=== PATIENT | female | born 1990 | race Native Hawaiian/Other Pacific Islander ===

== ENCOUNTER 2017-09-29 16:09 | Emergency (ER) | payer SELFPAY ==
[2017-09-29 16:43] VITALS: BP 135/66
[2017-09-29] MEDS ORDERED: DELTASONE PO ONE (20:11)
[2017-09-29] MEDS ORDERED: PROVENTIL IH ONE (20:11)
[2017-09-29] MEDS ORDERED: MOTRIN PO ONE (20:11)
[2017-09-29] MEDS ORDERED: TYLENOL #3 PO ONE (20:11)
[2017-09-29] MEDS ORDERED: ZOFRAN ODT PO ONE (20:13)
--- NOTE | 2017-09-29 21:12 | Emergency Department Report ---
Upper Respiratory HPI - HPI Chief Complaint: Upper Respiratory Infection Stated Complaint: CHEST PAIN/SOB/HEADACHE Time Seen by Provider: 09/29/17 20:11 Duration: 5 Days URI Symptoms: Rhinorrhea: Yes, Sore Throat: Yes, Ear Pain: Yes, Cough: Yes, Shortness of Breath: Yes, Sick Contacts: Yes, Unable to Take Fluids: No, Urine Output Abnormal: No, Listless Behavior: No Other History: Patient diagnosis of bronchitis on yesterday treated with amoxicillin and when necessary albuterol inhaler MAXIMUM TEMPERATURE is 101F,. Patient is tolerating by mouth intake without nausea vomiting at this time - Home Meds and Allergies Home Medications: Previous Rx's Medication Instructions Recorded Last Taken Type Azithromycin [Zithromax TAB] 250 mg PO QDAY #6 tablet 09/29/17 Unknown Rx Codeine Phosphate/Guaifenesin 5 ml PO TID PRN 10 Days #120 ml 09/29/17 Unknown Rx [Guaifenesin-Codeine Syrup] predniSONE [Deltasone] 40 mg PO QDAY 5 Days #10 tab 09/29/17 Unknown Rx Allergies/Adverse Reactions: Allergies Allergy/AdvReac Type Severity Reaction Status Date / Time No Known Allergies Allergy Unverified 09/29/17 16:43 ED Review of Systems ROS: Stated complaint: CHEST PAIN/SOB/HEADACHE Other details as noted in HPI Constitutional: chills, fever Eyes: denies: eye pain, eye discharge, vision change ENT: ear pain, throat pain, congestion Respiratory: cough, shortness of breath, wheezing Cardiovascular: chest pain. denies: palpitations Endocrine: no symptoms reported Gastrointestinal: nausea, vomiting. denies: abdominal pain, diarrhea, constipation, hematemesis, hematochezia Genitourinary: denies: urgency, dysuria, discharge Musculoskeletal: denies: back pain, joint swelling, arthralgia Skin: denies: rash, lesions Neurological: denies: headache, weakness, paresthesias Psychiatric: denies: anxiety, depression Hematological/Lymphatic: denies: easy bleeding, easy bruising ED Past Medical Hx - Past Medical History Previous Medical History?: No - Surgical History Past Surgical History?: No - Social History Smoking Status: Never Smoker Substance Use Type: None - Medications Home Medications: Home Medications Medication Instructions Recorded Confirmed Last Taken Type Azithromycin [Zithromax TAB] 250 mg PO QDAY #6 tablet 09/29/17 Unknown Rx Codeine Phosphate/Guaifenesin 5 ml PO TID PRN 10 Days #120 ml 09/29/17 Unknown Rx [Guaifenesin-Codeine Syrup] predniSONE [Deltasone] 40 mg PO QDAY 5 Days #10 tab 09/29/17 Unknown Rx ED Bronchiolitis Physical Exam - Exam General: Vital signs noted. No distress. Alert and acting appropriately. HEENT: Yes Pharyngeal Erythema, Yes Rhinorrhea, No Conjuctival Injection, No Dry Mucous Membranes Ear: Both TM Erythema, Neither TM Bulge, Neither EAC Discharge Neck: Yes Adenopathy, No Rigidity Lungs: Yes Good Air Exchange, Yes Wheezes, Yes Cough, No Clear Lung Sounds, No Stridor, No Nasal Flaring, No Retractions, No Use of Accessory Muscles Heart: Yes Regular, No Murmur Abdomen: Yes Normal Bowel Sounds, No Tenderness, No Peritoneal Signs Skin: No Rash, No Eczema Neurologic: Alert and oriented, no deficits. Musculoskeletal: Unremarkable. ED Bronchiolitis Tests - Testing Testing: CXR: Normal/Negative Treatments - Treaments Treatment: Improved Albuterol ED Physical Exam - General Limitations: No Limitations General appearance: alert, in no apparent distress - Head Head exam: Present: atraumatic, normocephalic - Eye Eye exam: Present: normal appearance, PERRL, EOMI Pupils: Present: normal accommodation - Expanded ENT Exam Expanded TM/Canal exam: Erythema: Right TM, Left TM Mouth exam: Present: tongue normal. Absent: trismus, tongue elevation Throat exam: Positive: tonsillar erythema, tonsillomegaly. Negative: tonsillar exudate, R peritonsillar mass, L peritonsillar mass - Neck Neck exam: Present: normal inspection, full ROM. Absent: tenderness, lymphadenopathy, thyromegaly - Respiratory Respiratory exam: Present: wheezes, chest wall tenderness. Absent: respiratory distress, stridor, accessory muscle use, decreased breath sounds, prolonged expiratory - Expanded Respiratory Exam Expanded Location: Wheezes: Right, Left, Upper - Cardiovascular Cardiovascular Exam: Present: regular rate, normal rhythm, normal heart sounds. Absent: systolic murmur, diastolic murmur, rubs, gallop - GI/Abdominal GI/Abdominal exam: Present: soft, normal bowel sounds. Absent: distended, tenderness, guarding, rebound, rigid, organomegaly, mass, bruit, pulsatile mass , hernia - Extremities Exam Extremities exam: Present: normal inspection, full ROM, normal capillary refill. Absent: tenderness - Back Exam Back exam: Present: normal inspection, full ROM. Absent: tenderness, CVA tenderness (R), CVA tenderness (L), muscle spasm, paraspinal tenderness, vertebral tenderness - Neurological Exam Neurological exam: Present: alert, oriented X3, CN II-XII intact, normal gait, reflexes normal - Psychiatric Psychiatric exam: Present: normal affect, normal mood - Skin Skin exam: Present: warm, dry, intact, normal color. Absent: rash ED Course Vital Signs 09/29/17 16:39 Temperature 100.6 F H Pulse Rate 104 H Respiratory 16 Rate Blood Pressure 135/66 O2 Sat by Pulse 94 Oximetry ED Medical Decision Making - Radiology Data Radiology results: image reviewed - Medical Decision Making Symptoms are improved with nebulizer patient ambulatory and in ED from room to the ED and back to room without increase shortness of breath or pain decrease to 1/10 patient denies chest pain no dizziness or lightheadedness no nausea vomiting no back pain chest x-ray noted consistent with bronchitis attempted IM Rocephin 1 g as she has had symptoms with productive cough for 1 month, however patient refused stating symptoms are improving we'll treat with his Z- Gerard five-day R program when necessary pain and fever continue albuterol inhaler and prednisone by mouth 5 days patient will follow with PCP in 2-3 days patient verbalized understanding and agreement was signed will be DC'd home in stable condition at this time Critical care attestation.: If time is entered above; I have spent that time in minutes in the direct care of this critically ill patient, excluding procedure time. ED Disposition Clinical Impression: Bronchitis Disposition: DC-01 TO HOME OR SELFCARE Is pt being admited?: No Does the pt Need Aspirin: No Condition: Good Instructions: Acute Bronchitis (ED) Prescriptions: Azithromycin [Zithromax TAB] 250 mg PO QDAY #6 tablet Codeine Phosphate/Guaifenesin [Guaifenesin-Codeine Syrup] 5 ml PO TID PRN 10 Days #120 ml PRN Reason: Cough predniSONE [Deltasone] 40 mg PO QDAY 5 Days #10 tab Referrals: PRIMARY CARE, [Primary Care Provider] - 3-5 Days Forms: Work/School Release Form(ED) Time of Disposition: 21:22
--- NOTE | 2017-09-29 21:18 | XRay Report ---
FINAL REPORT PROCEDURE: XR CHEST ROUTINE 2V TECHNIQUE: PA and lateral chest radiographs were obtained. CPT 72296 HISTORY: cough wheezing COMPARISON: No prior studies are available for comparison. FINDINGS: Heart: Normal. Mediastinum/Vessels: Normal. Lungs/Pleural space: Infiltrates are noted in the right middle lobe and right lower lobe. Left lung and bilateral pleural spaces are clear.. Bony thorax: No acute osseous abnormality. Other: IMPRESSION: Infiltrates right middle and lower lobes..
== END 2017-09-29 21:20 | disposition home or self-care (01) ==
LOC: ED 16:09
DX: J40 Bronchitis, not specified as acute or chronic (principal)
CPT/HCPCS: 71046; 93005; 93010; 94640; 99283; J7512; Q0162

== ENCOUNTER 2019-01-28 07:19 | Emergency (ER) | payer SELFPAY ==
[2019-01-28] MEDS ORDERED: SODIUM CHLORIDE 0.9% 1000 ML 1,000 ML IV ONE (08:16)
[2019-01-28] MEDS ORDERED: ONDANSETRON 4 MG/2 ML INJ IV ONE (08:16)
--- NOTE | 2019-01-28 08:21 | Emergency Department Report ---
HPI - General Chief Complaint: Nausea/Vomiting/Diarrhea Time Seen by Provider: 01/28/19 08:10 - HPI HPI: Room 37 The patient is a 28-year-old female presenting with a chief complaint of nausea vomiting. Patient states for the past 2 days she's had nausea vomiting and lightheadedness. Patient states today she is also had some abdominal pain as been intermittent and sharp in nature. The patient states she had a tubal ligation in 2011 but her LMP was October 2018. The patient states is very unusual for her cycle to be irregular. Patient denies vaginal bleeding of any type. Patient denies dysuria or hematuria. Patient denies breast tenderness or fever. Patient currently has her pain score of 8/10 ED Past Medical Hx - Past Medical History Previous Medical History?: Yes Hx Asthma: Yes Additional medical history: Hyperthyroidism - Surgical History Past Surgical History?: Yes Additional Surgical History: Tubaligation 2011 - Family History Family history: no significant - Social History Smoking Status: Never Smoker Substance Use Type: None (denies illicit drug use), Other - Medications Home Medications: Home Medications Medication Instructions Recorded Confirmed Last Taken Type Azithromycin [Zithromax TAB] 250 mg PO QDAY #6 tablet 09/29/17 Unknown Rx Codeine Phosphate/Guaifenesin 5 ml PO TID PRN 10 Days #120 ml 09/29/17 Unknown Rx [Guaifenesin-Codeine Syrup] predniSONE [Deltasone] 40 mg PO QDAY 5 Days #10 tab 09/29/17 Unknown Rx Ondansetron (Nf) [Zofran TAB] 8 mg PO Q8HR PRN #20 tablet 01/28/19 Unknown Rx ED Review of Systems ROS: Stated complaint: vomiting/dizziness Other details as noted in HPI Constitutional: denies: fever Eyes: denies: eye pain ENT: denies: throat pain Respiratory: no symptoms reported Cardiovascular: denies: chest pain Endocrine: no symptoms reported Gastrointestinal: abdominal pain, nausea, vomiting Genitourinary: abnormal menses. denies: dysuria, hematuria Musculoskeletal: denies: back pain Neurological: denies: headache Physical Exam - Physical Exam Vital Signs: Vital Signs 01/28/19 07:22 Temperature 97.7 F Pulse Rate 75 Respiratory 18 Rate Blood Pressure 120/72 O2 Sat by Pulse 96 Oximetry Physical Exam: GENERAL: The patient is well-developed well-nourished female lying on stretcher not appearing to be in acute distress. [] HEENT: Normocephalic. Atraumatic. Extraocular motions are intact. Patient has moist mucous membranes. NECK: Supple. Trachea midline CHEST/LUNGS: Clear to auscultation. There is no respiratory distress noted. HEART/CARDIOVASCULAR: Regular. There is no tachycardia. There is no gallop rub or murmur. ABDOMEN: Abdomen is soft, with mild superpubic tenderness to palpation. There is no rebound or guarding. Patient has normal bowel sounds. There is no abdominal distention. SKIN: There is no rash. There is no edema. There is no diaphoresis. NEURO: The patient is awake, alert, and oriented. The patient is cooperative. The patient has normal speech and gait. MUSCULOSKELETAL: There is no evidence of acute injury. ED Course Vital Signs 01/28/19 07:22 Temperature 97.7 F Pulse Rate 75 Respiratory 18 Rate Blood Pressure 120/72 O2 Sat by Pulse 96 Oximetry - Reevaluation(s) Reevaluation #1: 01/28/19 09:47 Patient tolerating po ED Medical Decision Making - Lab Data Result diagrams: 01/28/19 08:30 01/28/19 08:30 Laboratory Tests 01/28/19 01/28/19 01/28/19 08:30 08:30 08:30 WBC 7.8 RBC 4.63 Hgb 13.4 Hct 40.1 MCV 87 MCH 29 MCHC 33 RDW 13.4 Plt Count 229 Lymph % (Auto) 22.6 [place] % (Auto) 6.6 Eos % (Auto) 2.1 Baso % (Auto) 0.7 Lymph # 1.8 [place] # 0.5 Eos # 0.2 Baso # 0.1 Seg Neutrophils % 68.0 Seg Neutrophils # 5.3 Sodium 139 Potassium 4.2 Chloride 102.6 Carbon Dioxide 22 Anion Gap 19 BUN 21 H Creatinine 0.5 L Estimated GFR > 60 BUN/Creatinine Ratio 42 Glucose 100 Calcium 9.1 Total Bilirubin 0.20 AST 15 ALT 19 Alkaline Phosphatase 86 Total Protein 7.7 Albumin 4.3 Albumin/Globulin Ratio 1.3 Lipase 22 HCG, Quant < 2 Urine Color Urine Turbidity Urine pH Ur Specific [place] Urine Protein Urine Glucose (UA) Urine Ketones Urine Blood Urine Nitrite Urine Bilirubin Urine Urobilinogen Ur Leukocyte Esterase Urine WBC (Auto) Urine RBC (Auto) U Epithel Cells (Auto) Urine Mucus 01/28/19 Unknown WBC RBC Hgb Hct MCV MCH MCHC RDW Plt Count Lymph % (Auto) [place] % (Auto) Eos % (Auto) Baso % (Auto) Lymph # [place] # Eos # Baso # Seg Neutrophils % Seg Neutrophils # Sodium Potassium Chloride Carbon Dioxide Anion Gap BUN Creatinine Estimated GFR BUN/Creatinine Ratio Glucose Calcium Total Bilirubin AST ALT Alkaline Phosphatase Total Protein Albumin Albumin/Globulin Ratio Lipase HCG, Quant Urine Color Yellow Urine Turbidity Clear Urine pH 6.0 Ur Specific [place] 1.024 Urine Protein <15 mg/dl Urine Glucose (UA) Neg Urine Ketones Neg Urine Blood Mod Urine Nitrite Neg Urine Bilirubin Neg Urine Urobilinogen < 2.0 Ur Leukocyte Esterase Neg Urine WBC (Auto) 1.0 Urine RBC (Auto) 4.0 U Epithel Cells (Auto) 1.0 Urine Mucus Few - Differential Diagnosis UTI, gastroenteritis, ectopic , Critical care attestation.: If time is entered above; I have spent that time in minutes in the direct care of this critically ill patient, excluding procedure time. ED Disposition Clinical Impression: Nausea, Suprapubic pain Disposition: DC-01 TO HOME OR SELFCARE Is pt being admited?: No Does the pt Need Aspirin: No Condition: Stable Instructions: Acute Nausea and Vomiting (ED) Prescriptions: Ondansetron (Nf) [Zofran TAB] 8 mg PO Q8HR PRN #20 tablet PRN Reason: Nausea Referrals: [facility] [Outside] - 3-5 Days Time of Disposition: 09:47
[2019-01-28 08:44] LABS: Basophils # (Auto) 0.1 K/mm3 (0.0-0.1); Basophils % (Auto) 0.7 % (0.0-1.8); Eosinophils # (Auto) 0.2 K/mm3 (0.0-0.4); Eosinophils % (Auto) 2.1 % (0.0-4.3); Hematocrit 40.1 % (30.3-42.9); Hemoglobin 13.4 gm/dl (10.1-14.3); Lymphocytes # (Auto) 1.8 K/mm3 (1.2-5.4); Lymphocytes % (Auto) 22.6 % (13.4-35.0); Mean Corpuscular HGB Conc 33 % (30-34); Mean Corpuscular Volume 87 fl (79-97); Monocytes # (Auto) 0.5 K/mm3 (0.0-0.8); Monocytes % (Auto) 6.6 % (0.0-7.3); Platelet Count 229 K/mm3 (140-440); Red Blood Count 4.63 M/mm3 (3.65-5.03); Red Cell Distribution Width 13.4 % (13.2-15.2)
[2019-01-28 09:09] LABS: Bilirubin,Urine NEG (Negative); Blood,Urine MOD (Negative); Color,Urine Yellow (Yellow); Mucus,Urine FEW /HPF; Protein,Urine <15 mg/dL mg/dL (Negative); Urobilinogen,Urine < 2.0 mg/dL (<2.0)
[2019-01-28 09:13] LABS: Alanine Aminotransferase 19 units/L (7-56); Albumin 4.3 g/dL (3.9-5); BUN/Creatinine Ratio 42; Blood Urea Nitrogen 21 mg/dL (7-17); Calcium 9.1 mg/dL (8.4-10.2); Hemolysis Index 6
[2019-01-28 10:27] VITALS: BP 116/70
== END 2019-01-28 10:15 | disposition home or self-care (01) ==
LOC: ED 07:19
DX: R10.30 Lower abdominal pain, unspecified (principal); R11.2 Nausea with vomiting, unspecified; R42 Dizziness and giddiness; J45.909 Unspecified asthma, uncomplicated; E05.90 Thyrotoxicosis, unspecified without thyrotoxic crisis or storm
CPT/HCPCS: 36415; 80053; 81001; 83690; 84702; 85025; 96361; 96374; 99283; J2405; J7030

== ENCOUNTER 2019-10-30 16:09 | Emergency (ER) | payer SELFPAY ==
[2019-10-30 17:18] VITALS: BP 127/76
--- NOTE | 2019-10-30 18:33 | Event Note ---
ED Screening Note Date of service: 10/30/19 Time: 18:29 ED Screening Note: 29-year-old female presents -0-1-3 presents the ED complaining of vaginal spotting. Patient states she went to [facility] last week where she was told she was about 5 weeks . This initial assessment/diagnostic orders/clinical plan/treatment(s) is/are subject to change based on patients health status, clinical progression and re- assessment by fellow clinical providers in the ED. Further treatment and workup at subsequent clinical providers discretion. Patient/guardian urged not to elope from the ED as their condition may be serious if not clinically assessed and managed. Initial orders include: , UA, UPT, quant, ultrasound ordered
[2019-10-30 19:40] LABS: Basophils % (Auto) 0.3 % (0.0-1.8); Eosinophils # (Auto) 0.2 K/mm3 (0.0-0.4); Eosinophils % (Auto) 1.8 % (0.0-4.3); Hematocrit 34.6 % (30.3-42.9); Hemoglobin 12.2 gm/dl (10.1-14.3); Lymphocytes # (Auto) 2.1 K/mm3 (1.2-5.4); Lymphocytes % (Auto) 22.1 % (13.4-35.0); Mean Corpuscular HGB Conc 35 % (30-34); Mean Corpuscular Volume 86 fl (79-97); Monocytes # (Auto) 0.6 K/mm3 (0.0-0.8); Monocytes % (Auto) 6.6 % (0.0-7.3); Platelet Count 260 K/mm3 (140-440); Red Blood Count 4.03 M/mm3 (3.65-5.03); Red Cell Distribution Width 14.3 % (13.2-15.2)
--- NOTE | 2019-10-30 21:46 | Ultrasound Report ---
ULTRASOUND OBSTETRIC INDICATION / CLINICAL INFORMATION: vag spotting. TECHNIQUE: Transabdominal transvaginal imaging was performed COMPARISON: None available. FINDINGS: Uterus measures 10.6 x 5.6 x 8.0 cm No evidence of an intrauterine . Endometrial thickness is 9.7 mm ADNEXA: 1.7 cm cyst left ovary FREE FLUID: None. ADDITIONAL FINDINGS: None. IMPRESSION: 1. No evidence of an intrauterine . Signer Name: Sylvain Juarez MD Signed: 10/30/2019 9:42 PM Workstation Name: [id number]
--- NOTE | 2019-10-30 21:47 | Ultrasound Report ---
ULTRASOUND OBSTETRIC INDICATION / CLINICAL INFORMATION: vag spotting. TECHNIQUE: Transabdominal transvaginal imaging was performed COMPARISON: None available. FINDINGS: Uterus measures 10.6 x 5.6 x 8.0 cm No evidence of an intrauterine . Endometrial thickness is 9.7 mm ADNEXA: 1.7 cm cyst left ovary FREE FLUID: None. ADDITIONAL FINDINGS: None. IMPRESSION: 1. No evidence of an intrauterine . Signer Name: Sylvain Juarez MD Signed: 10/30/2019 9:43 PM Workstation Name: [id number]
--- NOTE | 2019-10-30 21:52 | Emergency Department Report ---
ED General Adult HPI - General Chief complaint: Vaginal Bleeding Stated complaint: PREG SPOTTING Time Seen by Provider: 10/30/19 21:39 Source: patient Mode of arrival: Ambulatory Limitations: No Limitations - History of Present Illness Initial comments: Patient is 29 years old female 5 para 3 with 1 miscarriage. Patient presented to the ER stating that she has a tubal reversal 1 month ago and she started having some vaginal spotting and she did a home test came back positive and she was asked to come to the ER to rule out ectopic . Patient currently denying any abdominal pain, dizziness, nausea or vomiting. Patient also denied any fever or chills. - Related Data Previous Rx's Medication Instructions Recorded Last Taken Type Azithromycin [Zithromax TAB] 250 mg PO QDAY #6 tablet 09/29/17 Unknown Rx Codeine Phosphate/Guaifenesin 5 ml PO TID PRN 10 Days #120 ml 09/29/17 Unknown Rx [Guaifenesin-Codeine Syrup] predniSONE [Deltasone] 40 mg PO QDAY 5 Days #10 tab 09/29/17 Unknown Rx Ondansetron (Nf) [Zofran TAB] 8 mg PO Q8HR PRN #20 tablet 01/28/19 Unknown Rx Allergies Allergy/AdvReac Type Severity Reaction Status Date / Time No Known Allergies Allergy Verified 10/30/19 17:15 ED Review of Systems ROS: Stated complaint: PREG SPOTTING Other details as noted in HPI Comment: All other systems reviewed and negative Constitutional: denies: chills, fever Respiratory: denies: cough, shortness of breath, SOB with exertion, SOB at rest, wheezing Cardiovascular: denies: chest pain, palpitations, dyspnea on exertion, orthopnea Musculoskeletal: denies: back pain Neurological: denies: headache, weakness, numbness, paresthesias, confusion ED Past Medical Hx - Past Medical History Hx Asthma: Yes Additional medical history: Hyperthyroidism - Surgical History Additional Surgical History: Tubaligation 2012/ TUBAL REVERSAL - Social History Smoking Status: Never Smoker Substance Use Type: None - Medications Home Medications: Home Medications Medication Instructions Recorded Confirmed Last Taken Type Azithromycin [Zithromax TAB] 250 mg PO QDAY #6 tablet 09/29/17 Unknown Rx Codeine Phosphate/Guaifenesin 5 ml PO TID PRN 10 Days #120 ml 09/29/17 Unknown Rx [Guaifenesin-Codeine Syrup] predniSONE [Deltasone] 40 mg PO QDAY 5 Days #10 tab 09/29/17 Unknown Rx Ondansetron (Nf) [Zofran TAB] 8 mg PO Q8HR PRN #20 tablet 01/28/19 Unknown Rx ED Physical Exam - General Limitations: No Limitations General appearance: alert, in no apparent distress - Head Head exam: Present: atraumatic, normocephalic, normal inspection - Eye Eye exam: Present: normal appearance - ENT ENT exam: Present: normal exam, normal orophraynx, mucous membranes moist - Neck Neck exam: Present: normal inspection, full ROM. Absent: tenderness, menin gismus - Respiratory Respiratory exam: Present: normal lung sounds bilaterally - Cardiovascular Cardiovascular Exam: Present: regular rate, normal rhythm, normal heart sounds - GI/Abdominal GI/Abdominal exam: Present: soft, normal bowel sounds. Absent: distended, tenderness, rebound, rigid, organomegaly, mass, bruit, pulsatile mass, hernia - Extremities Exam Extremities exam: Present: normal inspection, full ROM, normal capillary refill. Absent: pedal edema, calf tenderness - Back Exam Back exam: Present: normal inspection, full ROM. Absent: CVA tenderness (R), CVA tenderness (L) - Neurological Exam Neurological exam: Present: alert, oriented X3, CN II-XII intact, normal gait, reflexes normal - Psychiatric Psychiatric exam: Present: normal mood - Skin Skin exam: Present: warm, intact, normal color ED Course Vital Signs 10/30/19 17:16 Temperature 97.9 F Pulse Rate 91 H Respiratory 15 Rate Blood Pressure 127/76 O2 Sat by Pulse 97 Oximetry ED Medical Decision Making - Lab Data Result diagrams: 10/30/19 19:15 - Radiology Data Radiology results: report reviewed - Medical Decision Making Patient is 29 years old female 5 para 3 with 1 miscarriage. Patient presented to the ER stating that she has a tubal reversal 1 month ago and she started having some vaginal spotting and she did a home test came back positive and she was asked to come to the ER to rule out ectopic . Patient currently denying any abdominal pain, dizziness, nausea or vomiting. Patient also denied any fever or chills. Beta-hCG is 65. Ultrasound showed no evidence of intrauterine . Patient strongly advised to follow-up with her OB doctor in the next 2 to 3 days to repeat beta-hCG in ultrasound if possible. Patient also advised to return to the emergency room if she develop any new symptoms. Critical care attestation.: If time is entered above; I have spent that time in minutes in the direct care of this critically ill patient, excluding procedure time. ED Disposition Clinical Impression: Vaginal bleeding in patient after first trimester Disposition: DC-01 TO HOME OR SELFCARE Is pt being admited?: No Condition: Stable Instructions: (ED) Additional Instructions: Please follow-up with your OB doctor in 2 days to repeat beta-hCG. Your current beta-hCG is 65. Referrals: BLANQUITA ESCOBAR MD [Primary Care Provider] - 3-5 Days
== END 2019-10-30 22:40 | disposition home or self-care (01) ==
LOC: ED 16:09
DX: O20.9 Hemorrhage in early pregnancy, unspecified (principal); O99.511 Diseases of the respiratory system complicating pregnancy, first trimester; O99.281 Endocrine, nutritional and metabolic diseases complicating pregnancy, first trimester; E03.9 Hypothyroidism, unspecified; J45.909 Unspecified asthma, uncomplicated; Z98.51 Tubal ligation status; Z79.899 Other long term (current) drug therapy; Z3A.01 Less than 8 weeks gestation of pregnancy
CPT/HCPCS: 36415; 76801; 76817; 84702; 84703; 85025; 86900; 86901

== ENCOUNTER 2020-07-10 09:08 | Day surgery (SDC) | payer OTHER ==
[2020-07-10 14:48] VITALS: BP 126/66
== END 2020-07-10 14:30 | disposition home or self-care (01) ==
LOC: OR 09:08
PROVIDERS: ATTEND Obstetrics & Gynecology
DX: O02.1 Missed abortion (principal); E66.9 Obesity, unspecified; Z3A.13 13 weeks gestation of pregnancy; Z98.51 Tubal ligation status; Z87.440 Personal history of urinary (tract) infections; Z72.89 Other problems related to lifestyle; Z98.890 Other specified postprocedural states; Z79.899 Other long term (current) drug therapy; Z68.39 Body mass index [BMI] 39.0-39.9, adult
CPT/HCPCS: 36415; 59820; 85025; 86850; 86900; 86901; 88305; J1100; J1170; J1885; J2210; J2250; J2405; J2704; J3010; J7120